=== PATIENT | female | born 1980 | race Caucasian/White ===

== ENCOUNTER → 2021-02-09 | Outpatient (CLI) | payer OTHER ==
[~2021-02-09] MED LIST: ASPI-630 PO; DIAZ5TAB4 PO; GABA300C18 PO; GADOTERATE 5 MMOL/10ML VIAL. IVP ONE; LISI-517 PO; LORA10TA3 PO; PANT40TA77 PO; PROC10TA57 PO; RIZA10TA PO; TERI14TA PO; TOPI100T8 PO
--- NOTE | 2021-02-09 18:04 | KCIC ---
MRI of the Brain without and with Contrast 02/09/2021 Clinical History: Multiple sclerosis. Migraine headaches. Technique: Unenhanced T1-weighted and FLAIR sagittal and axial and T2-weighted, gradient echo and dif fusion-weighted axial images of the brain were obtained. After the intravenous administration of 10 c c of Clariscan, enhanced T1-weighted axial and coronal images of the brain were obtained. Findings: No previous studies are available for comparison. The ventricles and sulci are within normal limits in size and configuration. Multiple patchy, conflue nt and rounded/oval-shaped areas of abnormally increased signal intensity are seen within the periven tricular, deep and subcortical white matter of both cerebral hemispheres on the FLAIR and T2-weighted images. These measure 2 mm to 1.7 cm in size. They are consistent with the patient's history of mult iple sclerosis. No area of abnormal contrast enhancement is seen to suggest evidence of active demyel ination. There is no MRI evidence of acute ischemia/infarction. No extra-axial fluid collection is seen. Mild mucosal thickening in seen scattered throughout the paranasal sinuses. There are small bilateral mastoid effusions. Normal flow voids are seen within the major vascular structures surrounding the b rain parenchyma. IMPRESSION: Findings are seen consistent with the patient's history of multiple sclerosis. No area of abnormal contrast enhancement is seen to suggest evidence of active demyelination. No acute parenchy mal abnormality is seen. Electronically signed by: Samy Leija MD (02/09/2021 6:01 PM) [id number]
== END ==
LOC: KCIC MRI 15:17
PROVIDERS: ATTEND Psychiatry & Neurology Neurology with Special Qualifications in Child Neurology
DX: G35 Multiple sclerosis (principal); G43.909 Migraine, unspecified, not intractable, without status migrainosus
CPT/HCPCS: 70553; A9575